=== PATIENT | male | born 1990 | race Caucasian/White ===

== ENCOUNTER 2019-02-07 11:59 | Emergency (ER) | payer OTHER ==
[2019-02-07] MEDS ORDERED: SODIUM CHLORIDE 0.9% (FLUSH) 10 ML SYG IV PRN (12:05)
--- NOTE | 2019-02-07 12:26 | RAD ---
EXAM DESCRIPTION: Chest,1 View CLINICAL HISTORY: 28 years Male, CP, SOB COMPARISON: None. TECHNIQUE: AP portable chest. FINDINGS: Heart size is normal with normal pulmonary vascularity. No consolidating infiltrate. No pulmonary mass or worrisome nodule. No pneumothorax or pleural effusion. Bones are unremarkable. IMPRESSION: No acute process is identified in the chest. Electronically signed by: Andreas Rose MD 02/07/2019 12:25 PM CDT
[2019-02-07 12:28] VITALS: TEMP 98.2
[2019-02-07 13:10] VITALS: O2SAT 99
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
[2019-02-07 19:15] VITALS: BP 123/71
== END 2019-02-07 14:29 | disposition home or self-care (01) ==
LOC: ER 11:59
DX: M94.0 Chondrocostal junction syndrome [Tietze] (principal); R06.02 Shortness of breath; R07.89 Other chest pain; Z87.81 Personal history of (healed) traumatic fracture